=== PATIENT | female | born 1935 | race Hispanic/Latino ===

== ENCOUNTER 2024-04-01 08:24 | Outpatient (CLI) | payer OTHER | END 2024-04-01 08:25 | disposition home or self-care (01) | LOC: CSHWCC 08:24 | PROVIDERS: ATTEND Nurse Practitioner Family | DX: E11.622 Type 2 diabetes mellitus with other skin ulcer (principal); L97.115 Non-pressure chronic ulcer of right thigh with muscle involvement without evidence of necrosis | CPT/HCPCS: 11042; 11045; 87070; 87077; 87186; 87205 ==

== ENCOUNTER 2024-04-29 14:31 | Outpatient (CLI) | payer OTHER | END 2024-04-29 14:32 | disposition home or self-care (01) | LOC: CSHWCC 14:31 | PROVIDERS: ATTEND Nurse Practitioner Family | DX: E11.622 Type 2 diabetes mellitus with other skin ulcer (principal); L97.115 Non-pressure chronic ulcer of right thigh with muscle involvement without evidence of necrosis | CPT/HCPCS: 11042 ==

== ENCOUNTER 2024-05-18 08:45 | Outpatient (CLI) | payer OTHER | END 2024-05-18 08:46 | disposition home or self-care (01) | LOC: CSHWCC 08:45 | PROVIDERS: ATTEND Nurse Practitioner Family | DX: E11.622 Type 2 diabetes mellitus with other skin ulcer (principal); L97.115 Non-pressure chronic ulcer of right thigh with muscle involvement without evidence of necrosis | CPT/HCPCS: 11042 ==

== ENCOUNTER 2024-06-01 12:02 | Outpatient (CLI) | payer OTHER | END 2024-06-01 12:03 | disposition home or self-care (01) | LOC: CSHWCC 12:02 | PROVIDERS: ATTEND Nurse Practitioner Family | DX: E11.622 Type 2 diabetes mellitus with other skin ulcer (principal); L97.115 Non-pressure chronic ulcer of right thigh with muscle involvement without evidence of necrosis | CPT/HCPCS: 99212; G0463 ==